=== PATIENT | male | born 1965 | race Caucasian/White ===

== ENCOUNTER → 2020-01-11 | Emergency (ER) | payer OTHER ==
[~2020-01-11] MED LIST: DEXTROSE 5%-WATER 250 ML with NOREPINEPHRINE BITARTRATE 4 MG IV PRN; EPINEPHRINE INJ/PF 1 MG/1 ML AMPULE ONE; NOREPINEPHRINE BITARTRATE INJ/PF 4 MG/4 ML SDV IV ONE; NORMAL SALINE 250 ML IV PRN; PANTOPRAZOLE SODIUM 40 MG VIAL IV ONE; PANTOPRAZOLE SODIUM 40 MG VIAL IV PRN; TRANEXAMIC ACID INJ/PF 1,000 MG/10 ML SDV IV ONE
== END ==
LOC: ER 20:21
DX: Z53.21 Procedure and treatment not carried out due to patient leaving prior to being seen by health care provider (principal)
CPT/HCPCS: 71045